=== PATIENT | female | born 1965 ===

== ENCOUNTER 2022-10-18 11:46 | Outpatient (REF) | payer MEDICAID, SELFPAY ==
[2022-10-18 15:52] LABS: MCH 31.3 pg (27.0-33.0); MCHC 33.3 % (32.0-36.0); MCV 94 fL (80-95); MPV 10.4 fL (8.0-11.0); Platelet Count 428 10^3/uL (130-400); RBC 4.48 10^6/uL (3.93-5.22); RDW 11.7 % (11.7-14.6); RDW-SD 39.9 fL; WBC 5.11 10^3/uL (4.4-10.8)
[2022-10-18 16:09] LABS: C-Reactive Protein 0.05 mg/dL (0.0-0.3)
[2022-10-21 11:17] LABS: Lyme Ab w Rflx to Lyme Confirm Negative (Negative)
[2022-10-22 14:20] LABS: ANA Interpretation Negative (Negative)
== END 2022-10-18 11:47 | disposition home or self-care (01) ==
LOC: NCHCN 11:46
PROVIDERS: Visit Provider Family Medicine
DX: R53.83 Other fatigue (principal); L98.8 Other specified disorders of the skin and subcutaneous tissue
CPT/HCPCS: 85027; 84443; 86038; 86140; 86618

== ENCOUNTER 2023-01-03 12:02 | Outpatient (REF) | payer MEDICAID, SELFPAY ==
--- NOTE | 2023-01-03 10:10 | SKI_PTH ---
PATIENT: Suad Reed LOC: [facility]#:[id number] AGE/SX: 57/F ROOM: RE01/03/[address]: Carmen Saucedo : 1965 BED: DIS: 01/03/2023 SPEC #: [id number] RECD: 01/06/23 12:09 STATUS: JUAN R REGarland #: [id number] LAISHA: 01/03/23 10:[address]: Carmen Saucedo DEPT: Surgical Specimen RECD BY: Kathie Lopez ENTERED: 01/06/23 12:10 SP TYPE: NASRIN LAN DR: Unknown,Unknown Tissues: 1 - SKIN BIOPSY(SHAVE/PUNCH) Procedures: IMMUNOPEROXIDASE STAIN SKIN LEVEL 4 Comments: [id number]
== END 2023-01-03 12:03 | disposition home or self-care (01) ==
LOC: NCHCN 12:02
PROVIDERS: Visit Provider Family Medicine
DX: D48.5 Neoplasm of uncertain behavior of skin (principal)
CPT/HCPCS: 88305; 88361

== ENCOUNTER 2023-01-28 01:41 | Outpatient (CLI) | payer MEDICAID, SELFPAY ==
--- NOTE | 2023-01-28 | DI.RAD_ITS ---
Exam(s) XR KNEE RT 3V AP,LAT,JACK EXAM: XR KNEE RT 3V AP,LAT,JACK CLINICAL HISTORY: RT KNEE PAIN, M25.561. TECHNIQUE: 2D digital imaging was performed of the right knee. Four views obtained. AP, lateral and PA tunnel views were obtained. COMPARISON: No exams were available for comparison FINDINGS: BONES: No acute fracture is present. No bony destructive lesion is seen. JOINTS: Marked tricompartment degenerative changes are present characterized by joint space narrowing and marginal osteophytes. No joint effusion is seen. SOFT TISSUE: Normal. IMPRESSION: Marked osteoarthritis of the right knee. DATA REPOSITORY: RADIATION DOSE DELIVERED:
--- NOTE | 2023-01-28 11:10 | DI.RAD_ITS ---
Exam(s) XR HIP RT COMPLETE AP PELVIS EXAM: XR HIP RT COMPLETE AP PELVIS CLINICAL HISTORY: HIP PAIN, M25.559. TECHNIQUE: 2D digital imaging was performed of the right hip. Three images were obtained. AP pelvis and lateral right hip views were obtained. COMPARISON: No exams were available for comparison FINDINGS: BONES: No acute fracture is present. No bony destructive lesion is seen. JOINTS: There are marked degenerative changes seen at the right hip with loss of the joint space. Th ere is remodeling of both the acetabulum and the femoral head. There is a lucency seen on the superi or aspect of the right femoral head which may represent avascular necrosis. There is lateral subluxa tion of the femur relative to the right acetabulum. The left hip is well maintained. Mild degenerat darrell changes are seen in the lower lumbar spine. The sacroiliac joints of this is pubis are unremarka ble. SOFT TISSUE: There is a rounded density seen medial to the right femoral neck which may represent a l oose body. Well corticated osseous densities are also seen in the soft tissues around the hip. IMPRESSION: 1. Advanced degenerative changes of the right hip with lateral subluxation of the right femur relativ e to the acetabulum. 2. 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 DATA REPOSITORY: RADIATION DOSE DELIVERED:
== END 2023-01-28 02:01 ==
LOC: DI 01:42
PROVIDERS: Visit Provider Family Medicine
DX: M87.051 Idiopathic aseptic necrosis of right femur; M16.11 Unilateral primary osteoarthritis, right hip; M17.12 Unilateral primary osteoarthritis, left knee
CPT/HCPCS: 73562; 73502

== ENCOUNTER 2023-02-11 04:15 | Outpatient (CLI) | payer MEDICAID, SELFPAY ==
--- NOTE | 2023-02-11 10:00 | DI.CT_ITS ---
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 TECHNIQUE: Imaging Protocol: Axial computed tomography images with coronal and sagittal reformatted images were created and reviewed. CONTRAST MATERIAL: None COMPARISON: CR XR HIP RT COMPLETE AP PELVIS from 01/28/2023 CR XR KNEE RT 3V AP,LAT,JACK from 01/28/2023 FINDINGS: OSSEOUS: There is severe advanced osteoarthritic degenerative change in the right hip joint with china re joint space narrowing and degenerative subarticular cysts in femoral head and acetabulum as well a s prominent osteophytes and bony excrescences at the femoral head-neck level. There also multiple ca lcified intra-articular loose bodies in the hip joint space. There is lateral extension of the roof of the acetabulum which is partially fractured. No ominous osseous lesions. There is superolateral subluxation of the femoral head relative to the osseous glenoid. This is sign ificantly in part related to a huge osteophyte on the medial aspect of the femoral head causing later al deviation of the femoral head SOFT TISSUES: There is a small hip joint effusion. no ominous masses. no ipsilateral groin adenopat hy. IMPRESSION: Severe advanced degenerative change in the right hip joint as described above. Severe joint space na rrowing, degenerative subarticular cysts on both sides the joint, prominent osteophytes on both sides the joint. There is also lateral deviation of the femoral head relative to the glenoid fossa, at le ast in part due to a huge osteophyte on the medial aspect of the femoral head. The above findings may be related to prior remote severe trauma and/or avascular necrosis. Cannot ex clude element of developmental dysplasia. I note that on recent plain films the opposite-left hip appears unremarkable. RADIATION DOSE DELIVERED: 179.65mGy.cm Total DLP DATA REPOSITORY: All CT scans at this facility are submitted to the National Radiology Data Registry (NRDR) Dose Index Registry (DIR) with the [employer] ([employer]). RADIATION OPTIMIZATION: All CT scans at this facility use at least one of these dose optimization te chniques: automated exposure control; mA and/or kV adjustment per patient size (includes targeted exa ms where dose is matched to clinical indication); or iterative reconstruction.
== END 2023-02-11 04:35 ==
LOC: DI 04:15
PROVIDERS: Visit Provider Family Medicine
DX: M16.11 Unilateral primary osteoarthritis, right hip (principal); M54.50 Low back pain, unspecified
CPT/HCPCS: 73700

== ENCOUNTER 2023-03-12 04:32 | Outpatient (CLI) | payer MEDICAID, SELFPAY ==
[2023-03-12 13:27] LABS: HGB 14.5 g/dL (11.2-15.7); MCH 32.2 pg (27.0-33.0); MCHC 34.5 % (32.0-36.0); MCV 93 fL (80-95); MPV 8.8 fL (8.0-11.0); Platelet Count 299 10^3/uL (130-400); RBC 4.51 10^6/uL (3.93-5.22); RDW-SD 41.5 fL; WBC 5.95 10^3/uL (4.4-10.8)
[2023-03-12 13:41] LABS: Anion Gap 9.2 mmol/L (3-11); BUN 13 mg/dL (7-18); CO2 26.8 mmol/L (21.0-32.0); CREATININE 0.7 mg/dL (0.55-1.02); Calcium 8.7 mg/dL (8.5-10.1); Chloride 108 mmol/L (98-107); Estimated GFR 100.81 (mL/min/1.73m2); Glucose 90 mg/dL (74-106); Potassium 4.1 mmol/L (3.5-5.1); Sodium 144 mmol/L (136-145)
== END 2023-03-12 04:33 | disposition home or self-care (01) ==
LOC: LBO 04:32
PROVIDERS: PCP Family Medicine; Visit Provider Student in an Organized Health Care Education/Training Program
DX: M25.551 Pain in right hip (principal); M16.11 Unilateral primary osteoarthritis, right hip; Z01.818 Encounter for other preprocedural examination; Z01.812 Encounter for preprocedural laboratory examination
CPT/HCPCS: 36415; 80048; 85027